=== PATIENT | female | born 1995 | race Caucasian/White ===

== ENCOUNTER 2020-03-27 06:44 | Inpatient (IN) | payer MEDICAID ==
[~2020-03-27] VITALS: Ht 157.5 cm; Wt 83.7 kg
[2020-03-27 07:38] LABS: Urine Bacteria NONE SEEN /hpf (None Seen); Urine Blood 2+ /uL (Negative); Urine Mucus FEW (None Seen); Urine WBC <1 /hpf (0 - 5)
[2020-03-27 07:39] LABS: Basophils # (auto) 0 10 ^3/uL (0-0.2); Basophils % (auto) 0.2 % (0.0-2.0); Eosinophils # (auto) 0.1 10 ^3/uL (0-0.8); Eosinophils % (auto) 0.7 % (0.0-7.0); Hematocrit 40.5 % (36.0-46.0); Hemoglobin 13.7 g/dL (12.2-16.2); Lymphocytes # (auto) 0.9 10 ^3/uL (0.4-5.4); Mean Corpuscular Hemoglobin 30.3 pg (28.0-32.0); Mean Corpuscular Hgb Conc. 33.8 g/dL (32.0-36.0); Mean Corpuscular Volume 89.5 fL (80.0-100.0); Monocytes # (auto) 0.4 10 ^3/uL (0-1.3); Monocytes % (auto) 5.5 % (0.0-12.0); Neutrophils # (auto) 6.5 10 ^3/uL (1.6-8.6); Neutrophils % (auto) 82.6 % (37.0-80.0); Platelet Count (auto) 295 10^3/uL (140-450); Red Blood Cells 4.53 10^6/uL (4.0-5.20); Red Cell Distribution Width 13.6 % (11.8-14.3); White Blood Cell 7.8 10^3/uL (4.4-10.8)
[2020-03-27] MEDS ORDERED: SODIUM CHLORIDE 0.9% 1,000 ML IVB ONE (08:51)
[2020-03-27 09:34] LABS: Albumin 4.1 g/dL (3.4-5.0); Calcium 8.8 mg/dL (8.5-10.1); Potassium 4.5 mmol/L (3.5-5.1)
[2020-03-27 09:38] LABS: BUN/Creatinine Ratio 17.4; Bilirubin, Total 0.3 mg/dL (0.2-1.0); Total Protein 8.3 g/dL (6.4-8.2)
[2020-03-27 11:49] LABS: INR 0.97 (0.9-1.15); Partial Thromboplastin Time 29.9 sec (23.0-31.2)
[2020-03-27] MEDS ORDERED: ceFAZolin 1GM/50ML 50 ML IV ONE (12:25)
[2020-03-27] MEDS ORDERED: MEPERIDINE HCL (50 MG/ML) 1 ML VIAL ONE (13:20)
[2020-03-27] MEDS ORDERED: MIDAZOLAM HCL 1MG/1ML-2 ML VIAL ONE (13:20)
[2020-03-27] MEDS ORDERED: fentaNYL CITRATE 100 MCG/2 ML VL ONE (13:20)
[2020-03-27] MEDS ORDERED: GLYCOPYRROLATE 0.2 MG/ML 1ML VIAL IV ONE (13:25)
[2020-03-27] MEDS ORDERED: ROCURONIUM 10MG/ML 10ML VIAL IV ONE (13:25)
[2020-03-27] MEDS ORDERED: NEOSTIGMINE 1 MG/ML INJ (10mg/10ML VIAL) IV ONE (13:25)
[2020-03-27] MEDS ORDERED: PROPOFOL 10 MG/ML 20 ML IV ONE (14:09)
[2020-03-27] MEDS ORDERED: DexAMETHasone SOD PHOS 10MG/1ML VIAL INJ ONE (14:09)
[2020-03-27] MEDS ORDERED: ONDANSETRON HCL 4 MG/2 ML VIAL ONE (14:09)
[2020-03-27] MEDS ORDERED: LACTATED RINGER'S 1,000 ML IV SCH (14:26)
[2020-03-27] MEDS ORDERED: ONDANSETRON HCL 4 MG/2 ML VIAL IV PRN ×2 (14:30→15:00)
[2020-03-27] MEDS ORDERED: ceFAZolin 1GM/50ML 50 ML IV SCH (14:45)
[2020-03-27] MEDS ORDERED: RHO (D) IMMUNE GLOBULIN 300 MCG INJ IM PRN (14:45)
[2020-03-27] MEDS ORDERED: HYDROmorphone HCL 2 MG/ML VL ONE (14:59)
[2020-03-27] MEDS ORDERED: HYDROmorphone HCL 2 MG/ML VL IV PRN (15:00)
[2020-03-27] MEDS ORDERED: LABETALOL HCL 5 MG/ML 4ML SYRINGE IV PRN (15:00)
[2020-03-27] MEDS ORDERED: ePHEDrine SULFATE 50 MG/ML AMP IV PRN (15:00)
[2020-03-27] MEDS ORDERED: KETOROLAC TROMETH 30 MG/ML 1ML VIAL IV ONE (15:00)
[2020-03-27] MEDS ORDERED: MORPHINE SULFATE 4 MG/ML SYR/VIAL IV PRN (15:00)
[2020-03-27] MEDS ORDERED: MIDAZOLAM HCL 1MG/1ML-2 ML VIAL IV PRN (15:00)
[2020-03-27] MEDS ORDERED: MORPHINE SULF INJ 2 MG/ML SYRINGE 1ML IV PRN (15:45)
[2020-03-27] MEDS ORDERED: NITROGLYCERIN 0.4 MG SL TAB SL PRN (15:45)
--- NOTE | 2020-03-27 16:01 | NUR ---
Pt Arrived on Unit Pt arrive do unit from PACU. Pt is a/ox4 with no s/s of distress or SOB. Pt is currently on RA with no difficulty. Inscision site is clean, dry and intact. Pt able to transfer self from stretcher to bed without difficulty. Safety measures initiated with call light within reach, bed in lowest position and side rails up. Bed alarm is on for safety. Will continue to monitor for changes.
--- NOTE | 2020-03-27 16:12 | NUR ---
Diet Order Per Dr Pool, keep pt NPO untill 1900 and then start on ice chips. Will notify pt and implement.
[2020-03-27 16:16] VITALS: BP 120/78
[2020-03-27 17:00] VITALS: BP 125/66
[2020-03-27] MEDS: MORPHINE SULFATE 4 MG/ML SYR/VIAL IV PRN ×2 (17:51→21:34)
--- NOTE | 2020-03-27 19:20 | NUR ---
Opening Shift Note Assumed care of patient from RN Sarah, awake alert and oriented x4, status Post-op and incision site is clean, dry and intact. No S/S of distress/SOB or pain. Instructed on POC and to call for assist PRN, bed in lowest position, brakes locked, 2x side rails up and call light within reach. IS bedside. Will continue to monitor for changes Q1hr and PRN.
--- NOTE | 2020-03-27 20:05 | NUR ---
Dr. Pool called with order to add [facility] Quantitative in tomorrow's lab draw. Order carried out.
[2020-03-27] MEDS: ceFAZolin 1GM/50ML 50 ML IV SCH (20:29)
[2020-03-27 21:00] VITALS: BP 120/72
[2020-03-27 21:19] VITALS: BP 120/72
[2020-03-27 22:11] LABS: Basophils # (auto) 0 10 ^3/uL (0-0.2); Basophils % (auto) 0.1 % (0.0-2.0); Eosinophils # (auto) 0 10 ^3/uL (0-0.8); Hematocrit 36.9 % (36.0-46.0); Hemoglobin 12.3 g/dL (12.2-16.2); Lymphocytes # (auto) 0.4 10 ^3/uL (0.4-5.4); Mean Corpuscular Hemoglobin 29.8 pg (28.0-32.0); Mean Corpuscular Hgb Conc. 33.3 g/dL (32.0-36.0); Mean Corpuscular Volume 89.3 fL (80.0-100.0); Monocytes # (auto) 0.1 10 ^3/uL (0-1.3); Monocytes % (auto) 1.4 % (0.0-12.0); Neutrophils % (auto) 94.5 % (37.0-80.0); Platelet Count (auto) 250 10^3/uL (140-450); Red Blood Cells 4.13 10^6/uL (4.0-5.20); Red Cell Distribution Width 13.6 % (11.8-14.3); White Blood Cell 9.5 10^3/uL (4.4-10.8)
[2020-03-28] MEDS: MORPHINE SULFATE 4 MG/ML SYR/VIAL IV PRN (02:56)
[2020-03-28] MEDS: ceFAZolin 1GM/50ML 50 ML IV SCH ×2 (04:05→11:45)
[2020-03-28 05:41] LABS: Basophils # (auto) 0 10 ^3/uL (0-0.2); Eosinophils # (auto) 0 10 ^3/uL (0-0.8); Hematocrit 37.3 % (36.0-46.0); Hemoglobin 12.2 g/dL (12.2-16.2); Lymphocytes # (auto) 0.7 10 ^3/uL (0.4-5.4); Lymphocytes % (auto) 7.8 % (10.0-50.0); Mean Corpuscular Hemoglobin 29.4 pg (28.0-32.0); Mean Corpuscular Hgb Conc. 32.7 g/dL (32.0-36.0); Mean Corpuscular Volume 89.8 fL (80.0-100.0); Monocytes # (auto) 0.5 10 ^3/uL (0-1.3); Monocytes % (auto) 5.8 % (0.0-12.0); Neutrophils # (auto) 7.4 10 ^3/uL (1.6-8.6); Neutrophils % (auto) 86.4 % (37.0-80.0); Nucleated Red Blood Cells % 0.1 %; Platelet Count (auto) 272 10^3/uL (140-450); Red Blood Cells 4.15 10^6/uL (4.0-5.20); White Blood Cell 8.6 10^3/uL (4.4-10.8)
[2020-03-28 05:42] VITALS: BP 108/57
--- NOTE | 2020-03-28 07:30 | NUR ---
Dr. Pool at bedside with orders, carried out. Endorsed care to dayshift TOBY Goodrich.
[2020-03-28] MEDS ORDERED: BISACODYL 10 MG RECT SUPP PR PRN (07:45)
[2020-03-28] MEDS ORDERED: DOCUSATE SOD 100 MG CAP PO PRN (07:45)
--- NOTE | 2020-03-28 08:00 | NUR ---
Norris catheter dc'd Order to discontinue norris catheter. Norris dc'd with clean technique following deflation of balloon. Patient tolerated well with no complaints of pain. Continue care.
[2020-03-28] MEDS: KETOROLAC TROMETH 30 MG/ML 1ML VIAL IV PRN ×2 (08:04→17:04)
[2020-03-28 09:00] VITALS: BP 110/67
--- NOTE | 2020-03-28 09:00 | NUR ---
Patient urinated clear yellow urine.
[2020-03-28] MEDS: DOCUSATE CALCIUM 240 MG CAP PO SCH (09:30)
[2020-03-28] MEDS: SIMETHICONE 80 MG CHEWABLE TABLET PO SCH ×3 (11:45→22:47)
[2020-03-28] MEDS: HYDROcodone-ACET 10/325MG TAB PO PRN ×2 (11:53→21:02)
[2020-03-28 13:00] VITALS: BP 104/66
[2020-03-28 17:00] VITALS: BP 110/63
[2020-03-28] MEDS: ONDANSETRON HCL 4 MG/2 ML VIAL IV PRN (19:48)
[2020-03-28 22:14] VITALS: BP 106/72
[2020-03-29] MEDS: KETOROLAC TROMETH 30 MG/ML 1ML VIAL IV PRN (03:59)
[2020-03-29 05:31] VITALS: BP 100/62
[2020-03-29] MEDS: SIMETHICONE 80 MG CHEWABLE TABLET PO SCH (06:04)
--- NOTE | 2020-03-29 07:40 | NUR ---
MD AT BEDSIDE DR. MÉNDEZ WAS IN TO SEE PATIENT AND MD LEFT PRESCRIPTIONS AND DISCHARGE ORDER. PATIENT IS AWARE OF ORDER.
[2020-03-29] MEDS: HYDROcodone-ACET 10/325MG TAB PO PRN (09:06)
[2020-03-29 09:11] VITALS: BP 110/55
[2020-03-29] MEDS: ONDANSETRON HCL 4 MG/2 ML VIAL IV PRN (10:24)
[2020-03-29] MEDS: DOCUSATE CALCIUM 240 MG CAP PO SCH (10:33)
[2020-03-29 11:09] VITALS: BP 110/55
== END 2020-03-29 12:20 | disposition home or self-care (01) | DRG 545 ==
LOC: ER 06:44 → CENTRAL 06:45 → ER 12:17
PROVIDERS: ADMIT Obstetrics & Gynecology; ATTEND Obstetrics & Gynecology
PROC: 0UB50ZZ Excision of Right Fallopian Tube, Open Approach (ICD-10-PCS; 2020-03-27)
PROC: 0UB00ZZ Excision of Right Ovary, Open Approach (ICD-10-PCS; 2020-03-27)
PROC: 10T20ZZ Resection of Products of Conception, Ectopic, Open Approach (ICD-10-PCS; principal; 2020-03-27 13:29)
DX: O00.101 Right tubal pregnancy without intrauterine pregnancy (principal); K66.1 Hemoperitoneum
CPT/HCPCS: 36415; 76801; 76817; 80053; 81001; 84702; 85025; 85610; 85730; 86850; 86900; 86901; 90384; G0378; J0690; J1100; J1885; J2250; J2405; J2704